=== PATIENT | male | born 1935 | race Caucasian/White ===

== ENCOUNTER 2017-11-22 20:41 | Inpatient (IN) | payer MEDICARE, BC, OTHER ==
[~2017-11-22] VITALS: Ht 193 cm; Wt 96.2 kg
[~2017-11-22 20:41] MED LIST: ACET-2119 PO; ASPI-416 PO; ATEN25TA7 PO; ATOR10TA70 PO; DOXA8TAB79 PO; LIDOcaine 2% (20 mg/ml) 5ml cardiac syringe ONE; LOPE1TAB46 PO; MAGNESIUM SULFATE 4 MEQ/ML (5gm/10ml) injection ONE; albumin (human) 25% 100 ML IV solution IV ONE; aminocaproic acid 250 MG/1 ML inj. ONE; amiodarone in dextrose, iso-osm 360mg/200ml bag IV ONE; calcium chloride 100 MG/1 ML inj IV ONE; heparin 1,000 units/ml 10ml inj ONE; heparin 10,000 units/1 ML INJ ONE; phenylephrine 10mg/ml inj. ONE; potassium Cl 2 mEq/ml inj IV ONE; protamine sulf. 10mg/ml inj. IV ONE; sevoflurane 250ml liquid IH ONE; sodium bicarbonate (8.4%) 1 mEq/ml syringe ONE
[2017-11-22] MEDS ORDERED: temazepam 15mg capsule PO PRN (21:00)
[2017-11-22 21:18] LABS: HEMATOCRIT 35.7 % (42.0-52.0); HEMOGLOBIN 12.1 g/dl (14.0-17.9); MEAN CORPUSCULAR HEMOGLOBIN 29.8 PG (27.0-31.0); MEAN CORPUSCULAR HGB CONC 33.9 % (33.0-36.5); MEAN CORPUSCULAR VOLUME 87.8 FL (78-98); MEAN PLATELET VOLUME 9.9 FL (7.4-10.4); PLATELET COUNT 115 X10'3 (140-440); RED BLOOD COUNT 4.07 X10'6 (4.70-6.10); RED CELL DISTRIBUTION WIDTH 13.3 % (11.5-14.5); WHITE BLOOD COUNT 4.4 X10'3 (4.5-11.0)
[2017-11-22 21:25] LABS: ALANINE AMINOTRANSFERASE 22 U/L (12-78); ALBUMIN 3.9 G/DL (3.4-5.0); ALBUMIN/GLOBULIN RATIO 1.1 (1.1-1.5); ALKALINE PHOSPHATASE 56 IU/L (46-116); ANION GAP 7 (8-16); ASPARTATE AMINO TRANSFERASE 20 U/L (10-37); BILIRUBIN,TOTAL 0.4 MG/DL (0.1-1.0); BLOOD UREA NITROGEN 22 MG/DL (7-18); BUN/CREATININE RATIO 23.4 (5.4-32.0); CALCIUM 8.6 MG/DL (8.5-10.1); CHLORIDE 103 MMOL/L (99-107); CREATININE 0.94 MG/DL (0.60-1.10); GLUCOSE 133 MG/DL (70-104); POTASSIUM 3.7 MMOL/L (3.5-5.1); SODIUM 139 MMOL/L (135-145); TOTAL CARBON DIOXIDE 28.7 MMOL/L (24-32); TOTAL PROTEIN 7.4 G/DL (6.4-8.2); eGFR 77 ML/MIN
[2017-11-22 21:38] LABS: PARTIAL THROMBOPLASTIN TIME 28 SECONDS (22-32); PROTHROMBIN TIME 10.7 SECONDS (9.0-12.0)
[2017-11-22 21:53] LABS: TOTAL CELLS COUNTED 100
[2017-11-22 21:54] LABS: GIANT PLATELET FEW; LARGE PLATELETS FEW; PLATELET ESTIMATE DECREASED
[2017-11-22] MEDS ORDERED: magnesium hydroxide 30ml (MOM) UD suspension PO PRN (22:30)
[2017-11-22] MEDS ORDERED: HYDROcodone/acetaminophen 5mg/325mg tablet PO PRN (22:30)
[2017-11-22] MEDS ORDERED: ondansetron/PF 4mg/2ml inj IV PRN (22:30)
[2017-11-22] MEDS ORDERED: diphenhydrAMINE 25mg capsule PO PRN (22:30)
[2017-11-22] MEDS ORDERED: HYDROmorphone 1 mg/ml syringe IV PRN ×2 (22:30)
[2017-11-22] MEDS ORDERED: morphine 2 MG/ML inj. syringe IV PRN ×2 (22:30)
[2017-11-22] MEDS ORDERED: bisacodyl 10mg suppository rectal RC PRN (22:30)
[2017-11-22] MEDS ORDERED: HYDROcodone/acetaminophen 10/325mg tab PO PRN (22:30)
[2017-11-22] MEDS ORDERED: mag hydrox/Alum hydrox/simeth 30ml oral suspension PO PRN (22:30)
[2017-11-22] MEDS ORDERED: diphenhydrAMINE 50 mg/ml inj IV PRN (22:30)
[2017-11-22] MEDS ORDERED: acetaminophen 650mg rectal suppository RC PRN (22:30)
[2017-11-22] MEDS ORDERED: acetaminophen 325mg tablet PO PRN ×2 (22:30)
[2017-11-22] MEDS ORDERED: metoclopramide 5 mg/ml inj IV PRN (22:30)
[2017-11-22] MEDS ORDERED: ISOS120T9 PO (22:32)
[2017-11-22] MEDS ORDERED: NITR0.4T SL (22:32)
[2017-11-22] MEDS ORDERED: ALFU10TA PO (22:32)
[2017-11-22] MEDS ORDERED: nitroGLYCERIN 0.4mg SUBLingual tab SL PRN (22:45)
[2017-11-22] MEDS ORDERED: regadenoson 0.4mg/5ml syringe IV ONE (22:45)
[2017-11-22] MEDS ORDERED: metoprolol tartrate 1mg/ml inj IV PRN (22:45)
[2017-11-22] MEDS ORDERED: aminophylline 250mg/10ml inj. IV PRN (22:45)
[2017-11-22 23:00] VITALS: BP 162/95
[2017-11-22 23:03] LABS: PHOSPHORUS 2.9 MG/DL (2.3-4.5)
[2017-11-23] VITALS (13 sets, daily range): BP systolic 115–161; BP diastolic 61–86
[2017-11-23] MEDS: normal saline 1000ml 1,000 ML IV SCH ×3 (00:30→19:30)
[2017-11-23 02:57] LABS: BASOPHILS % (AUTO) 0.4 % (0-1); EOSINOPHILS # (AUTO) 0.2 X10'3 (0-0.9); EOSINOPHILS % (AUTO) 3.8 % (0-6); HEMATOCRIT 37.9 % (42.0-52.0); HEMOGLOBIN 12.9 g/dl (14.0-17.9); LYMPHOCYTES # (AUTO) 1.1 X10'3 (1.1-4.8); LYMPHOCYTES % (AUTO) 24.2 % (21-51); MEAN CORPUSCULAR HEMOGLOBIN 29.8 PG (27.0-31.0); MEAN CORPUSCULAR VOLUME 87.8 FL (78-98); MEAN PLATELET VOLUME 9.3 FL (7.4-10.4); MONOCYTES # (AUTO) 0.9 X10'3 (0-0.9); MONOCYTES % (AUTO) 18.9 % (2-12); NEUTROPHILS # (AUTO) 2.4 X10'3 (1.8-7.7); NEUTROPHILS % (AUTO) 52.7 % (42-75); PLATELET COUNT 118 X10'3 (140-440); RED BLOOD COUNT 4.32 X10'6 (4.70-6.10); RED CELL DISTRIBUTION WIDTH 13.7 % (11.5-14.5); WHITE BLOOD COUNT 4.5 X10'3 (4.5-11.0)
[2017-11-23 03:11] LABS: ALANINE AMINOTRANSFERASE 20 U/L (12-78); ALBUMIN 3.6 G/DL (3.4-5.0); ALBUMIN/GLOBULIN RATIO 1.1 (1.1-1.5); ALKALINE PHOSPHATASE 49 IU/L (46-116); ANION GAP 9 (8-16); ASPARTATE AMINO TRANSFERASE 19 U/L (10-37); BILIRUBIN,TOTAL 0.4 MG/DL (0.1-1.0); BLOOD UREA NITROGEN 20 MG/DL (7-18); BUN/CREATININE RATIO 21.3 (5.4-32.0); CALCIUM 8.6 MG/DL (8.5-10.1); CHLORIDE 105 MMOL/L (99-107); CREATININE 0.94 MG/DL (0.60-1.10); GLUCOSE 104 MG/DL (70-104); SODIUM 141 MMOL/L (135-145); TOTAL CARBON DIOXIDE 26.9 MMOL/L (24-32); eGFR 77 ML/MIN
[2017-11-23] MEDS: famotidine 20mg tablet PO SCH ×2 (07:18→20:54)
[2017-11-23] MEDS: docusate sod 100mg capsule PO SCH ×2 (07:18→20:00)
[2017-11-23] MEDS: atenolol 25mg tablet PO SCH (07:19)
[2017-11-23] MEDS: heparin, porcine 5000 units/ml vial SQ SCH ×2 (07:19→20:57)
[2017-11-23] MEDS ORDERED: aspirin 81mg tablet.DR PO SCH (08:00)
[2017-11-23] MEDS ORDERED: acetaminophen 325mg tablet PO PRN (10:20)
[2017-11-23] MEDS ORDERED: SIMETHICONE PO PRN (10:50)
[2017-11-23] MEDS ORDERED: LOPERAMIDE HCL PO PRN (10:50)
[2017-11-23] MEDS ORDERED: aminophylline inj. 0 ML IV ONE (12:49)
[2017-11-23] MEDS ORDERED: regadenoson 0.4mg/5ml syringe IV ONE (12:49)
[2017-11-23] MEDS: tamsulosin 0.4mg capsule PO SCH (20:54)
[2017-11-23] MEDS: atorvastatin 10mg tablet PO SCH (20:54)
[2017-11-23] MEDS: doxazosin mesylate 2mg tablet PO SCH (20:55)
[2017-11-24] VITALS (7 sets, daily range): BP systolic 98–135; BP diastolic 44–65
[2017-11-24 05:21] LABS: BASOPHILS % (AUTO) 0.4 % (0-1); EOSINOPHILS # (AUTO) 0.2 X10'3 (0-0.9); EOSINOPHILS % (AUTO) 3.4 % (0-6); HEMATOCRIT 36.3 % (42.0-52.0); HEMOGLOBIN 12.3 g/dl (14.0-17.9); LYMPHOCYTES # (AUTO) 1.4 X10'3 (1.1-4.8); MEAN CORPUSCULAR HEMOGLOBIN 29.9 PG (27.0-31.0); MEAN CORPUSCULAR HGB CONC 33.8 % (33.0-36.5); MEAN CORPUSCULAR VOLUME 88.4 FL (78-98); MEAN PLATELET VOLUME 9.8 FL (7.4-10.4); MONOCYTES % (AUTO) 18.9 % (2-12); NEUTROPHILS # (AUTO) 2.5 X10'3 (1.8-7.7); NEUTROPHILS % (AUTO) 50.3 % (42-75); PLATELET COUNT 108 X10'3 (140-440); RED BLOOD COUNT 4.11 X10'6 (4.70-6.10); RED CELL DISTRIBUTION WIDTH 13.6 % (11.5-14.5)
[2017-11-24 06:14] LABS: ALANINE AMINOTRANSFERASE 21 U/L (12-78); ALBUMIN 3.8 G/DL (3.4-5.0); ALBUMIN/GLOBULIN RATIO 1.2 (1.1-1.5); ALKALINE PHOSPHATASE 50 IU/L (46-116); ANION GAP 7 (8-16); ASPARTATE AMINO TRANSFERASE 21 U/L (10-37); BILIRUBIN,TOTAL 0.9 MG/DL (0.1-1.0); BLOOD UREA NITROGEN 18 MG/DL (7-18); BUN/CREATININE RATIO 17.1 (5.4-32.0); CALCIUM 8.8 MG/DL (8.5-10.1); CHLORIDE 104 MMOL/L (99-107); CREATININE 1.05 MG/DL (0.60-1.10); GLUCOSE 94 MG/DL (70-104); MAGNESIUM 1.9 MG/DL (1.5-2.4); PHOSPHORUS 2.7 MG/DL (2.3-4.5); POTASSIUM 3.5 MMOL/L (3.5-5.1); SODIUM 141 MMOL/L (135-145); TOTAL CARBON DIOXIDE 29.7 MMOL/L (24-32); TOTAL PROTEIN 7.1 G/DL (6.4-8.2); eGFR 68 ML/MIN
[2017-11-24] MEDS: docusate sod 100mg capsule PO SCH ×2 (08:24→20:00)
[2017-11-24] MEDS: atenolol 25mg tablet PO SCH (08:25)
[2017-11-24] MEDS: isosorbide mononitrate 30mg tab.SR.24H PO SCH (08:25)
[2017-11-24] MEDS: famotidine 20mg tablet PO SCH ×2 (08:25→20:27)
[2017-11-24] MEDS: heparin, porcine 5000 units/ml vial SQ SCH ×2 (08:26→20:00)
[2017-11-24 09:51] LABS: CHOL/HDL RATIO 4.3 (0.00-4.99); CHOLESTEROL 158 MG/DL (0-200); HDL CHOLESTEROL 37 MG/DL (35-60); LDL CHOLESTEROL 108 MG/DL (50-100); TRIGLYCERIDES 113 MG/DL (20-135)
[2017-11-24] MEDS ORDERED: aspirin 81mg tablet.DR PO SCH (10:58)
[2017-11-24] MEDS: normal saline 1000ml 1,000 ML IV SCH ×2 (15:54→18:34)
[2017-11-24] MEDS: tamsulosin 0.4mg capsule PO SCH (20:27)
[2017-11-24] MEDS: atorvastatin 10mg tablet PO SCH (20:27)
[2017-11-24] MEDS: doxazosin mesylate 2mg tablet PO SCH (22:10)
[2017-11-25] VITALS (16 sets, daily range): BP systolic 101–126; BP diastolic 48–94
[2017-11-25 05:46] LABS: BASOPHILS % (AUTO) 0.3 % (0-1); EOSINOPHILS # (AUTO) 0.1 X10'3 (0-0.9); EOSINOPHILS % (AUTO) 2.7 % (0-6); HEMATOCRIT 32.8 % (42.0-52.0); HEMOGLOBIN 11.1 g/dl (14.0-17.9); LYMPHOCYTES # (AUTO) 0.8 X10'3 (1.1-4.8); LYMPHOCYTES % (AUTO) 15.8 % (21-51); MEAN CORPUSCULAR HEMOGLOBIN 29.6 PG (27.0-31.0); MEAN CORPUSCULAR HGB CONC 33.7 % (33.0-36.5); MEAN CORPUSCULAR VOLUME 87.8 FL (78-98); MEAN PLATELET VOLUME 9.5 FL (7.4-10.4); MONOCYTES % (AUTO) 19.7 % (2-12); NEUTROPHILS # (AUTO) 3.2 X10'3 (1.8-7.7); NEUTROPHILS % (AUTO) 61.5 % (42-75); PLATELET COUNT 100 X10'3 (140-440); RED BLOOD COUNT 3.73 X10'6 (4.70-6.10); RED CELL DISTRIBUTION WIDTH 13.4 % (11.5-14.5); WHITE BLOOD COUNT 5.2 X10'3 (4.5-11.0)
[2017-11-25] MEDS ORDERED: midazolam 2 mg/2 ml injection ONE (06:00)
[2017-11-25] MEDS ORDERED: iohexol 350MG/ML 100ml bottle IV ONE (06:00)
[2017-11-25] MEDS ORDERED: fentaNYL/PF 50MCG/1 ML 2ML syringe ONE (06:00)
[2017-11-25] MEDS ORDERED: LIDOcaine 1% 30ml preserv. free vial ONE (06:00)
[2017-11-25 06:04] LABS: ALANINE AMINOTRANSFERASE 19 U/L (12-78); ALBUMIN 3.4 G/DL (3.4-5.0); ALBUMIN/GLOBULIN RATIO 1.1 (1.1-1.5); ALKALINE PHOSPHATASE 44 IU/L (46-116); ANION GAP 7 (8-16); ASPARTATE AMINO TRANSFERASE 18 U/L (10-37); BILIRUBIN,TOTAL 0.9 MG/DL (0.1-1.0); BLOOD UREA NITROGEN 16 MG/DL (7-18); BUN/CREATININE RATIO 16.5 (5.4-32.0); CALCIUM 8.6 MG/DL (8.5-10.1); CHLORIDE 107 MMOL/L (99-107); CREATININE 0.97 MG/DL (0.60-1.10); GLUCOSE 92 MG/DL (70-104); MAGNESIUM 1.9 MG/DL (1.5-2.4); PHOSPHORUS 2.7 MG/DL (2.3-4.5); POTASSIUM 3.9 MMOL/L (3.5-5.1); SODIUM 142 MMOL/L (135-145); TOTAL CARBON DIOXIDE 28.2 MMOL/L (24-32); TOTAL PROTEIN 6.4 G/DL (6.4-8.2); eGFR 74 ML/MIN
[2017-11-25] MEDS ORDERED: heparin 1,000unit/ml 10ml vial 0 ML ONE (06:40)
[2017-11-25] MEDS ORDERED: OXAZEpam 15mg capsule PO PRN (07:25)
[2017-11-25] MEDS ORDERED: ondansetron/PF 4mg/2ml inj IV PRN (07:25)
[2017-11-25] MEDS ORDERED: proCHLORperazine 10 MG/2 ml inj IV PRN (07:25)
[2017-11-25] MEDS ORDERED: MESSAGE TO NURSING PO ONE ×5 (07:40→10:00)
[2017-11-25] MEDS ORDERED: dextrose 50%-water 50ml dispensing syringe IV PRN (07:40)
[2017-11-25] MEDS: atenolol 25mg tablet PO SCH (08:00)
[2017-11-25 09:29] LABS: ALBUMIN 3.7 G/DL (3.4-5.0); ANION GAP 7 (8-16); BLOOD UREA NITROGEN 16 MG/DL (7-18); BUN/CREATININE RATIO 16.2 (5.4-32.0); CALCIUM 8.5 MG/DL (8.5-10.1); CHLORIDE 106 MMOL/L (99-107); CREATININE 0.99 MG/DL (0.60-1.10); GLUCOSE 117 MG/DL (70-104); SODIUM 141 MMOL/L (135-145); TOTAL CARBON DIOXIDE 27.7 MMOL/L (24-32); eGFR 73 ML/MIN
[2017-11-25 09:32] LABS: HEMATOCRIT 36.2 % (42.0-52.0); HEMOGLOBIN 12.2 g/dl (14.0-17.9); MEAN CORPUSCULAR HEMOGLOBIN 29.9 PG (27.0-31.0); MEAN CORPUSCULAR HGB CONC 33.8 % (33.0-36.5); MEAN CORPUSCULAR VOLUME 88.3 FL (78-98); MEAN PLATELET VOLUME 9.6 FL (7.4-10.4); PLATELET COUNT 110 X10'3 (140-440); RED BLOOD COUNT 4.09 X10'6 (4.70-6.10); RED CELL DISTRIBUTION WIDTH 13.4 % (11.5-14.5); WHITE BLOOD COUNT 4.4 X10'3 (4.5-11.0)
[2017-11-25 09:33] LABS: INR 1.1 INR; PARTIAL THROMBOPLASTIN TIME 27 SECONDS (22-32); PROTHROMBIN TIME 10.9 SECONDS (9.0-12.0)
[2017-11-25 09:38] LABS: HEMOGLOBIN A1C 6.1 % (4.5-6.2)
[2017-11-25] MEDS: famotidine 20mg tablet PO SCH ×2 (09:47→20:00)
[2017-11-25] MEDS: isosorbide mononitrate 30mg tab.SR.24H PO SCH (09:47)
[2017-11-25] MEDS: docusate sod 100mg capsule PO SCH ×2 (09:48→20:00)
[2017-11-25] MEDS: heparin, porcine 5000 units/ml vial SQ SCH (09:49)
[2017-11-25 11:06] LABS: ABG BASE EXCESS -0.3 mmol/L (-2.0-3.0); ABG HCO3 24.2 mmol/L (22.0-26.0); ABG OXYGEN SATURATION 95.4 % (95-98); ABG PCO2 (T) 39.3 mmHg (35.0-48.0); ABG PH (T) 7.408 (7.350-7.450); ABG PO2 (T) 79.5 mmHg (83-108); ALLEN'S TEST Positive; FCOHb 0.5 % (0.5-1.5); FMetHb 0.1 % (0.3-1.12); FO2Hb 94.8 % (94-100); TOTAL HEMOGLOBIN 12.1 G/dl (14.0-18.0)
[2017-11-25] MEDS ORDERED: amiodarone 150mg/dext, iso-os 100 ML IV ONE (16:25)
[2017-11-25] MEDS: amiodarone/D5 360MG/200ML BAG 200 ML IV SCH ×2 (17:00→22:26)
[2017-11-25 17:11] LABS: COLOR,URINE YELLOW (Yellow); GLUCOSE, URINE NEGATIVE (Neg); KETONES,URINE NEGATIVE (Neg); LEUKOCYTE ESTERASE ,URINE TRACE (Neg); NITRITES, URINE NEGATIVE (Neg); OCCULT BLOOD,URINE NEGATIVE (Neg); PH,URINE 6.5 (4.8-8.0); PROTEIN,URINE NEGATIVE (Neg); UROBILINOGEN,URINE 0.2 E.U/dL (0.2-1.0)
[2017-11-25 17:12] LABS: UA COLLECTION TYPE URINAL
[2017-11-25 17:20] LABS: BACTERIA,URINE FEW /HPF (Neg); MUCUS STRANDS FEW /LPF (Neg); RBC,URINE 0-2 /HPF (0-2); SQUAMOUS EPITHELIAL CELL,UR FEW /LPF (FEW); WBC CLUMPS,URINE FEW /HPF (NEGATIVE); WBC,URINE 20-30 /HPF (0-4)
[2017-11-25 17:22] LABS: CLARITY,URINE Slightly Cloudy (Clear)
[2017-11-25] MEDS ORDERED: mupirocin 2% nasal ointment 1gm UD NS SCH (20:00)
[2017-11-25] MEDS: doxazosin mesylate 2mg tablet PO SCH (21:01)
[2017-11-25] MEDS: tamsulosin 0.4mg capsule PO SCH (21:02)
[2017-11-25] MEDS: atorvastatin 10mg tablet PO SCH (21:02)
[2017-11-26] VITALS (19 sets, daily range): BP systolic 88–157; BP diastolic 44–76
[2017-11-26] MEDS ORDERED: famotidine 20mg tablet PO ONE (06:00)
[2017-11-26] MEDS ORDERED: LORazepam 2 mg/ml vial IV ONE (06:00)
[2017-11-26 06:06] LABS: BASOPHILS % (AUTO) 0.3 % (0-1); EOSINOPHILS # (AUTO) 0.1 X10'3 (0-0.9); EOSINOPHILS % (AUTO) 2.4 % (0-6); HEMATOCRIT 35.9 % (42.0-52.0); HEMOGLOBIN 12.3 g/dl (14.0-17.9); LYMPHOCYTES # (AUTO) 0.8 X10'3 (1.1-4.8); LYMPHOCYTES % (AUTO) 16.4 % (21-51); MEAN CORPUSCULAR HEMOGLOBIN 29.9 PG (27.0-31.0); MEAN CORPUSCULAR HGB CONC 34.2 % (33.0-36.5); MEAN CORPUSCULAR VOLUME 87.4 FL (78-98); MEAN PLATELET VOLUME 9.7 FL (7.4-10.4); MONOCYTES # (AUTO) 0.9 X10'3 (0-0.9); MONOCYTES % (AUTO) 18.9 % (2-12); NEUTROPHILS # (AUTO) 3.1 X10'3 (1.8-7.7); PLATELET COUNT 109 X10'3 (140-440); RED CELL DISTRIBUTION WIDTH 13.2 % (11.5-14.5)
[2017-11-26] MEDS ORDERED: ceFAZolin 2gm in dextrose, iso 100 ML IV ONE (06:30)
[2017-11-26] MEDS ORDERED: vancomycin/NS 1 GM ADD-VANTAGE 250 ML IV ONE (06:30)
[2017-11-26 06:33] LABS: ALANINE AMINOTRANSFERASE 17 U/L (12-78); ALBUMIN 3.5 G/DL (3.4-5.0); ALKALINE PHOSPHATASE 50 IU/L (46-116); ANION GAP 11 (8-16); ASPARTATE AMINO TRANSFERASE 20 U/L (10-37); BILIRUBIN,TOTAL 0.7 MG/DL (0.1-1.0); BLOOD UREA NITROGEN 17 MG/DL (7-18); CALCIUM 8.6 MG/DL (8.5-10.1); CHLORIDE 106 MMOL/L (99-107); CHOLESTEROL 145 MG/DL (0-200); GLUCOSE 102 MG/DL (70-104); HDL CHOLESTEROL 36 MG/DL (35-60); LDL CHOLESTEROL 93 MG/DL (50-100); MAGNESIUM 1.9 MG/DL (1.5-2.4); PHOSPHORUS 2.4 MG/DL (2.3-4.5); POTASSIUM 3.6 MMOL/L (3.5-5.1); SODIUM 141 MMOL/L (135-145); TOTAL CARBON DIOXIDE 24.5 MMOL/L (24-32); TOTAL PROTEIN 6.9 G/DL (6.4-8.2); TRIGLYCERIDES 117 MG/DL (20-135); eGFR 72 ML/MIN
[2017-11-26] MEDS ORDERED: MIDAZolam 1mg/ml 10ml vial ONE (06:42)
[2017-11-26] MEDS ORDERED: SUFENTANIL CITRATE 50 MCG/ML 2ml ampule IV ONE (06:42)
[2017-11-26 06:54] LABS: INR 1.1 INR; PROTHROMBIN TIME 10.9 SECONDS (9.0-12.0)
[2017-11-26 07:36] LABS: ABG HCO3 23.7 mmol/L (22.0-26.0); ABG OXYGEN SATURATION 99.3 % (95-98); ABG PCO2 (T) 39.2 mmHg (35.0-48.0); ABG PH (T) 7.399 (7.350-7.450); FCOHb 0.3 % (0.5-1.5); FMetHb 0.6 % (0.3-1.12); FO2Hb 98.4 % (94-100); TOTAL HEMOGLOBIN 11.7 G/dl (14.0-18.0)
[2017-11-26] MEDS ORDERED: papaverine 30 mg/ml 2ml inj. IA ONE (08:03)
[2017-11-26] MEDS ORDERED: heparin 10,000 units/1 ML INJ IR ONE (08:04)
[2017-11-26 10:26] LABS: ABG BASE EXCESS -0.6 mmol/L (-2.0-3.0); ABG HCO3 24.9 mmol/L (22.0-26.0); ABG OXYGEN SATURATION 91.6 % (95-98); ABG PO2 (T) 66.3 mmHg (83-108); FCOHb 0.9 % (0.5-1.5); FMetHb 0.5 % (0.3-1.12); FO2Hb 90.3 % (94-100); TOTAL HEMOGLOBIN 8.1 G/dl (14.0-18.0)
[2017-11-26] MEDS: amiodarone/D5 360MG/200ML BAG 200 ML IV SCH ×3 (10:34→16:38)
[2017-11-26] MEDS ORDERED: DOPamine 400mg/D5W 250ml 250 ML IV PRN (10:54)
[2017-11-26] MEDS ORDERED: niCARDipine-NS 40mg/200ml IVPB 200 ML IV PRN (10:54)
[2017-11-26] MEDS ORDERED: nitroGLYCERIN-Tridil 50MG/D5W 250 ML IV PRN (10:54)
[2017-11-26] MEDS ORDERED: normal saline 250ml IV soln 250 ML IV PRN (10:55)
[2017-11-26] MEDS ORDERED: sodium phosphate inj. 30 MMOL in dextrose 5%-water 250 ML IV PRN (10:55)
[2017-11-26] MEDS ORDERED: acetaminophen 325mg tablet PO PRN (10:55)
[2017-11-26] MEDS ORDERED: metoclopramide 5 mg/ml inj IV PRN (10:55)
[2017-11-26] MEDS ORDERED: magnesium hydroxide 30ml (MOM) UD suspension PO PRN (10:55)
[2017-11-26] MEDS ORDERED: ondansetron/PF 4mg/2ml inj IV PRN (10:55)
[2017-11-26] MEDS ORDERED: Neutra Phos packet PO PRN (10:55)
[2017-11-26] MEDS ORDERED: dextrose 50%-water 50ml dispensing syringe IV PRN (10:55)
[2017-11-26] MEDS ORDERED: sodium phosphate inj. 15 MMOL in dextrose 5%-water 150 ML IV PRN (10:55)
[2017-11-26] MEDS ORDERED: insulin regular, human inj. 100 UNITS in normal saline 100ml IV soln 100 ML IV SCH ×2 (10:55)
[2017-11-26] MEDS ORDERED: potassium Cl 20mEq/100mL bag 100 ML IV PRN ×2 (10:55)
[2017-11-26] MEDS ORDERED: magnesium 4gm in 100ml NS 100 ML IV PRN (10:55)
[2017-11-26 11:10] LABS: ABG BASE EXCESS -3.4 mmol/L (-2.0-3.0); ABG HCO3 21.3 mmol/L (22.0-26.0); ABG OXYGEN SATURATION 98.8 % (95-98); ABG PCO2 (T) 36.4 mmHg (35.0-48.0); ABG PH (T) 7.384 (7.350-7.450); ABG PO2 (T) 209.1 mmHg (83-108); FCOHb 0.3 % (0.5-1.5); FMetHb 0.3 % (0.3-1.12); FO2Hb 98.2 % (94-100); MINUTE VOLUME 8 L/min; PATIENT TEMPERATURE 36.6; PEEP 5 cm H2O; RESPIRATORY RATE 12 b/min; TIDAL VOLUME 600 mL; TOTAL HEMOGLOBIN 11.9 G/dl (14.0-18.0)
[2017-11-26 11:12] LABS: BASOPHILS % (AUTO) 0 % (0-1); EOSINOPHILS % (AUTO) 0.4 % (0-6); HEMATOCRIT 33.3 % (42.0-52.0); HEMOGLOBIN 11.2 g/dl (14.0-17.9); LYMPHOCYTES # (AUTO) 0.6 X10'3 (1.1-4.8); LYMPHOCYTES % (AUTO) 7.9 % (21-51); MEAN CORPUSCULAR HEMOGLOBIN 29.6 PG (27.0-31.0); MEAN CORPUSCULAR HGB CONC 33.6 % (33.0-36.5); MEAN CORPUSCULAR VOLUME 88.1 FL (78-98); MONOCYTES # (AUTO) 0.9 X10'3 (0-0.9); MONOCYTES % (AUTO) 11.2 % (2-12); NEUTROPHILS # (AUTO) 6.4 X10'3 (1.8-7.7); NEUTROPHILS % (AUTO) 80.5 % (42-75); PLATELET COUNT 65 X10'3 (140-440); RED BLOOD COUNT 3.78 X10'6 (4.70-6.10); RED CELL DISTRIBUTION WIDTH 13.1 % (11.5-14.5); WHITE BLOOD COUNT 7.9 X10'3 (4.5-11.0)
[2017-11-26] MEDS ORDERED: rocuronium 10mg/ml inj IV ONE ×3 (11:26)
[2017-11-26] MEDS ORDERED: propofol inj 20 ML IV ONE (11:26)
[2017-11-26] MEDS ORDERED: ePHEDrine 50MG/ML INJ. ONE (11:26)
[2017-11-26 11:28] LABS: ALANINE AMINOTRANSFERASE 17 U/L (12-78); ALBUMIN 2.8 G/DL (3.4-5.0); ALBUMIN/GLOBULIN RATIO 1.2 (1.1-1.5); ALKALINE PHOSPHATASE 37 IU/L (46-116); ANION GAP 9 (8-16); ASPARTATE AMINO TRANSFERASE 23 U/L (10-37); BILIRUBIN,TOTAL 0.8 MG/DL (0.1-1.0); BLOOD UREA NITROGEN 14 MG/DL (7-18); BUN/CREATININE RATIO 14.7 (5.4-32.0); CHLORIDE 109 MMOL/L (99-107); CREATININE 0.95 MG/DL (0.60-1.10); GLUCOSE 150 MG/DL (70-104); MAGNESIUM 2.5 MG/DL (1.5-2.4); PHOSPHORUS 2.4 MG/DL (2.3-4.5); POTASSIUM 4.1 MMOL/L (3.5-5.1); SODIUM 143 MMOL/L (135-145); TOTAL CARBON DIOXIDE 25.2 MMOL/L (24-32); TOTAL PROTEIN 5.2 G/DL (6.4-8.2); eGFR 76 ML/MIN
[2017-11-26 11:29] LABS: INR 1.2 INR; PARTIAL THROMBOPLASTIN TIME 26 SECONDS (22-32); PROTHROMBIN TIME 12.5 SECONDS (9.0-12.0)
[2017-11-26] MEDS: albumin (Human) 5% 250ml 250 ML IV PRN ×3 (12:00→14:28)
[2017-11-26] MEDS ORDERED: insulin Lispro (HumaLOG) vial - multi-dose SQ SCH (12:00)
[2017-11-26] MEDS: insulin regular, human inj. 100 UNITS in normal saline 100ml IV soln 100 ML IV SCH ×8 (12:02→15:05)
[2017-11-26] MEDS: sodium chloride 0.45% 1,000 ML IV SCH (12:06)
[2017-11-26] MEDS: insulin Lispro (HumaLOG) vial - multi-dose SQ SCH ×2 (12:08→16:39)
[2017-11-26] MEDS: morphine 4 MG/ML inj SYRINge IV PRN ×5 (13:00→20:12)
[2017-11-26] MEDS ORDERED: dexmedetomidine inj. 400 MCG in normal saline 100ml IV soln 100 ML IV PRN (14:10)
[2017-11-26 16:15] LABS: ABG BASE EXCESS -5.5 mmol/L (-2.0-3.0); ABG PCO2 (T) 34.4 mmHg (35.0-48.0); ABG PH (T) 7.362 (7.350-7.450); FCOHb 0.3 % (0.5-1.5); FMetHb 0.2 % (0.3-1.12); FO2Hb 97.5 % (94-100); PATIENT TEMPERATURE 37.6; PEEP 5 cm H2O; TOTAL HEMOGLOBIN 10.8 G/dl (14.0-18.0)
[2017-11-26] MEDS: ceFAZolin 1GM/D5W- ADD-VANTAGE 50 ML IV SCH ×2 (16:38→23:52)
[2017-11-26 17:30] LABS: BASOPHILS % (AUTO) 0 % (0-1); EOSINOPHILS % (AUTO) 0 % (0-6); HEMATOCRIT 29.2 % (42.0-52.0); HEMOGLOBIN 9.8 g/dl (14.0-17.9); LYMPHOCYTES # (AUTO) 0.2 X10'3 (1.1-4.8); LYMPHOCYTES % (AUTO) 1.8 % (21-51); MEAN CORPUSCULAR HEMOGLOBIN 29.7 PG (27.0-31.0); MEAN CORPUSCULAR HGB CONC 33.7 % (33.0-36.5); MEAN CORPUSCULAR VOLUME 88.2 FL (78-98); MEAN PLATELET VOLUME 9.6 FL (7.4-10.4); MONOCYTES # (AUTO) 1.2 X10'3 (0-0.9); MONOCYTES % (AUTO) 11.4 % (2-12); NEUTROPHILS # (AUTO) 9.4 X10'3 (1.8-7.7); NEUTROPHILS % (AUTO) 86.8 % (42-75); PLATELET COUNT 67 X10'3 (140-440); RED BLOOD COUNT 3.31 X10'6 (4.70-6.10); RED CELL DISTRIBUTION WIDTH 13.5 % (11.5-14.5); WHITE BLOOD COUNT 10.8 X10'3 (4.5-11.0)
[2017-11-26 17:39] LABS: ALBUMIN 3.5 G/DL (3.4-5.0); ANION GAP 12 (8-16); BLOOD UREA NITROGEN 14 MG/DL (7-18); BUN/CREATININE RATIO 10.9 (5.4-32.0); CALCIUM 8.3 MG/DL (8.5-10.1); CHLORIDE 110 MMOL/L (99-107); CREATININE 1.28 MG/DL (0.60-1.10); GLUCOSE 149 MG/DL (70-104); POTASSIUM 3.7 MMOL/L (3.5-5.1); SODIUM 146 MMOL/L (135-145); TOTAL CARBON DIOXIDE 23.7 MMOL/L (24-32); eGFR 54 ML/MIN
[2017-11-26] MEDS: potassium Cl 20mEq/100mL bag 100 ML IV PRN ×2 (19:05→20:12)
[2017-11-26] MEDS: docusate sod 100mg capsule PO SCH (20:00)
[2017-11-26] MEDS: vancomycin/NS 1 GM ADD-VANTAGE 250 ML IV SCH (20:11)
[2017-11-26] MEDS: tamsulosin 0.4mg capsule PO SCH (20:19)
[2017-11-26] MEDS: mupirocin 2% ointment 22GM NS SCH (20:19)
[2017-11-27] VITALS (24 sets, daily range): BP systolic 81–153; BP diastolic 41–65
[2017-11-27] MEDS: morphine 4 MG/ML inj SYRINge IV PRN ×3 (00:06→22:35)
[2017-11-27 01:51] LABS: BASOPHILS % (AUTO) 0 % (0-1); EOSINOPHILS % (AUTO) 0 % (0-6); HEMATOCRIT 25.6 % (42.0-52.0); HEMOGLOBIN 8.6 g/dl (14.0-17.9); LYMPHOCYTES # (AUTO) 0.2 X10'3 (1.1-4.8); LYMPHOCYTES % (AUTO) 1.7 % (21-51); MEAN CORPUSCULAR HEMOGLOBIN 29.7 PG (27.0-31.0); MEAN CORPUSCULAR HGB CONC 33.6 % (33.0-36.5); MEAN CORPUSCULAR VOLUME 88.4 FL (78-98); MEAN PLATELET VOLUME 10.1 FL (7.4-10.4); MONOCYTES # (AUTO) 1.3 X10'3 (0-0.9); MONOCYTES % (AUTO) 11.8 % (2-12); NEUTROPHILS # (AUTO) 9.4 X10'3 (1.8-7.7); NEUTROPHILS % (AUTO) 86.5 % (42-75); PLATELET COUNT 62 X10'3 (140-440); RED CELL DISTRIBUTION WIDTH 13.8 % (11.5-14.5); WHITE BLOOD COUNT 10.8 X10'3 (4.5-11.0)
[2017-11-27 02:11] LABS: INR 1.2 INR; PARTIAL THROMBOPLASTIN TIME 29 SECONDS (22-32); PROTHROMBIN TIME 12.3 SECONDS (9.0-12.0)
[2017-11-27 02:57] LABS: ALANINE AMINOTRANSFERASE 18 U/L (12-78); ALBUMIN 3.1 G/DL (3.4-5.0); ALBUMIN/GLOBULIN RATIO 1.3 (1.1-1.5); ALKALINE PHOSPHATASE 26 IU/L (46-116); ANION GAP 11 (8-16); ASPARTATE AMINO TRANSFERASE 39 U/L (10-37); BILIRUBIN,TOTAL 0.8 MG/DL (0.1-1.0); BLOOD UREA NITROGEN 16 MG/DL (7-18); CALCIUM 8.1 MG/DL (8.5-10.1); CHLORIDE 111 MMOL/L (99-107); CREATININE 0.94 MG/DL (0.60-1.10); GLUCOSE 135 MG/DL (70-104); MAGNESIUM 1.9 MG/DL (1.5-2.4); POTASSIUM 4.6 MMOL/L (3.5-5.1); SODIUM 146 MMOL/L (135-145); TOTAL CARBON DIOXIDE 24.5 MMOL/L (24-32); TOTAL PROTEIN 5.5 G/DL (6.4-8.2); eGFR 77 ML/MIN
[2017-11-27] MEDS: amiodarone/D5 360MG/200ML BAG 200 ML IV SCH ×5 (04:46→22:20)
[2017-11-27] MEDS: ceFAZolin 1GM/D5W- ADD-VANTAGE 50 ML IV SCH ×3 (07:20→22:40)
[2017-11-27] MEDS: metoprolol tartrate 12.5mg (1/2 tablet) PO SCH ×2 (07:26→20:00)
[2017-11-27] MEDS: mupirocin 2% ointment 22GM NS SCH ×2 (07:28→20:54)
[2017-11-27] MEDS: vancomycin/NS 1 GM ADD-VANTAGE 250 ML IV SCH ×2 (07:29→20:54)
[2017-11-27] MEDS: pantoprazole 40mg Tablet.DR PO SCH (07:30)
[2017-11-27] MEDS: atorvastatin 10mg tablet PO SCH (07:53)
[2017-11-27] MEDS: docusate sod 100mg capsule PO SCH ×2 (07:53→20:54)
[2017-11-27] MEDS: aspirin 325mg tablet, delayed-release (Ecotrin) PO SCH (07:53)
[2017-11-27] MEDS: insulin Lispro (HumaLOG) vial - multi-dose SQ SCH ×3 (09:00→19:13)
[2017-11-27 09:30] LABS: ABG BASE EXCESS -0.4 mmol/L (-2.0-3.0); ABG HCO3 22.9 mmol/L (22.0-26.0); ABG OXYGEN SATURATION 95.4 % (95-98); ABG PCO2 (T) 32.2 mmHg (35.0-48.0); ABG PH (T) 7.469 (7.350-7.450); ABG PO2 (T) 76.1 mmHg (83-108); FCOHb 0.3 % (0.5-1.5); FLOW 2 L/min; FMetHb 0.1 % (0.3-1.12); TOTAL HEMOGLOBIN 9.7 G/dl (14.0-18.0)
[2017-11-27] MEDS ORDERED: furosemide 40mg/4ml inj IV ONE (09:45)
[2017-11-27] MEDS: HYDROcodone/acetaminophen 10/325mg tab PO PRN (15:58)
[2017-11-27] MEDS: tamsulosin 0.4mg capsule PO SCH (20:54)
[2017-11-28] VITALS (24 sets, daily range): BP systolic 93–119; BP diastolic 57–73
[2017-11-28] MEDS: morphine 4 MG/ML inj SYRINge IV PRN ×2 (01:55→12:05)
[2017-11-28 03:03] LABS: BASOPHILS % (AUTO) 0 % (0-1); EOSINOPHILS % (AUTO) 0 % (0-6); HEMATOCRIT 26.8 % (42.0-52.0); LYMPHOCYTES # (AUTO) 0.5 X10'3 (1.1-4.8); LYMPHOCYTES % (AUTO) 5.2 % (21-51); MEAN CORPUSCULAR HEMOGLOBIN 29.6 PG (27.0-31.0); MEAN CORPUSCULAR HGB CONC 33.5 % (33.0-36.5); MEAN CORPUSCULAR VOLUME 88.2 FL (78-98); MEAN PLATELET VOLUME 10.1 FL (7.4-10.4); MONOCYTES # (AUTO) 1.3 X10'3 (0-0.9); MONOCYTES % (AUTO) 14.1 % (2-12); NEUTROPHILS # (AUTO) 7.4 X10'3 (1.8-7.7); NEUTROPHILS % (AUTO) 80.7 % (42-75); PLATELET COUNT 60 X10'3 (140-440); RED BLOOD COUNT 3.04 X10'6 (4.70-6.10); RED CELL DISTRIBUTION WIDTH 14.4 % (11.5-14.5); WHITE BLOOD COUNT 9.2 X10'3 (4.5-11.0)
[2017-11-28 03:06] LABS: ALBUMIN 3.1 G/DL (3.4-5.0); ANION GAP 8 (8-16); BLOOD UREA NITROGEN 24 MG/DL (7-18); BUN/CREATININE RATIO 22.4 (5.4-32.0); CHLORIDE 107 MMOL/L (99-107); CREATININE 1.07 MG/DL (0.60-1.10); GLUCOSE 135 MG/DL (70-104); MAGNESIUM 2.6 MG/DL (1.5-2.4); PHOSPHORUS 2.5 MG/DL (2.3-4.5); POTASSIUM 3.7 MMOL/L (3.5-5.1); SODIUM 141 MMOL/L (135-145); TOTAL CARBON DIOXIDE 26.5 MMOL/L (24-32); eGFR 66 ML/MIN
[2017-11-28] MEDS: potassium Cl 20mEq/100mL bag 100 ML IV PRN (03:54)
[2017-11-28] MEDS: amiodarone/D5 360MG/200ML BAG 200 ML IV SCH ×4 (05:02→19:35)
[2017-11-28] MEDS: insulin regular, human inj. 100 UNITS in normal saline 100ml IV soln 100 ML IV SCH ×2 (06:30)
[2017-11-28] MEDS: mupirocin 2% ointment 22GM NS SCH (08:00)
[2017-11-28] MEDS: pantoprazole 40mg Tablet.DR PO SCH (08:37)
[2017-11-28] MEDS: metoprolol tartrate 12.5mg (1/2 tablet) PO SCH ×2 (08:37→19:50)
[2017-11-28] MEDS: amiodarone 200mg tablet PO SCH (08:37)
[2017-11-28] MEDS: docusate sod 100mg capsule PO SCH ×2 (08:37→19:50)
[2017-11-28] MEDS: aspirin 325mg tablet, delayed-release (Ecotrin) PO SCH (08:37)
[2017-11-28] MEDS: atorvastatin 10mg tablet PO SCH (08:37)
[2017-11-28] MEDS: insulin Lispro (HumaLOG) vial - multi-dose SQ SCH ×3 (09:00→18:00)
[2017-11-28] MEDS: sodium chloride 0.45% 1,000 ML IV SCH ×2 (10:54→19:35)
[2017-11-28] MEDS: lactose-reduced food (Ensure High Protein) 237ml bottle PO SCH (18:00)
[2017-11-28] MEDS: HYDROcodone/acetaminophen 10/325mg tab PO PRN (18:46)
[2017-11-28] MEDS: tamsulosin 0.4mg capsule PO SCH (21:12)
[2017-11-29] VITALS (23 sets, daily range): BP systolic 96–124; BP diastolic 58–76
[2017-11-29] MEDS: HYDROcodone/acetaminophen 10/325mg tab PO PRN ×4 (02:43→16:18)
[2017-11-29 03:13] LABS: BASOPHILS % (AUTO) 0.1 % (0-1); EOSINOPHILS # (AUTO) 0.1 X10'3 (0-0.9); EOSINOPHILS % (AUTO) 1.2 % (0-6); HEMATOCRIT 25.8 % (42.0-52.0); HEMOGLOBIN 8.8 g/dl (14.0-17.9); LYMPHOCYTES # (AUTO) 0.6 X10'3 (1.1-4.8); LYMPHOCYTES % (AUTO) 8.7 % (21-51); MEAN CORPUSCULAR HGB CONC 34.1 % (33.0-36.5); MEAN PLATELET VOLUME 10.6 FL (7.4-10.4); MONOCYTES % (AUTO) 13.5 % (2-12); NEUTROPHILS # (AUTO) 5.6 X10'3 (1.8-7.7); NEUTROPHILS % (AUTO) 76.5 % (42-75); PLATELET COUNT 60 X10'3 (140-440); RED BLOOD COUNT 2.93 X10'6 (4.70-6.10); RED CELL DISTRIBUTION WIDTH 13.9 % (11.5-14.5); WHITE BLOOD COUNT 7.3 X10'3 (4.5-11.0)
[2017-11-29 03:32] LABS: ALBUMIN 2.9 G/DL (3.4-5.0); ANION GAP 7 (8-16); BLOOD UREA NITROGEN 26 MG/DL (7-18); BUN/CREATININE RATIO 29.5 (5.4-32.0); CALCIUM 7.9 MG/DL (8.5-10.1); CHLORIDE 105 MMOL/L (99-107); CREATININE 0.88 MG/DL (0.60-1.10); GLUCOSE 128 MG/DL (70-104); MAGNESIUM 2.1 MG/DL (1.5-2.4); PHOSPHORUS 1.9 MG/DL (2.3-4.5); POTASSIUM 3.7 MMOL/L (3.5-5.1); SODIUM 139 MMOL/L (135-145); TOTAL CARBON DIOXIDE 27.4 MMOL/L (24-32); eGFR 83 ML/MIN
[2017-11-29] MEDS: magnesium 1gm/100ml D5W IVPB 100 ML IV PRN (04:38)
[2017-11-29] MEDS: potassium Cl 20mEq/100mL bag 100 ML IV PRN (04:39)
[2017-11-29] MEDS: amiodarone/D5 360MG/200ML BAG 200 ML IV SCH (05:18)
[2017-11-29] MEDS: insulin regular, human inj. 100 UNITS in normal saline 100ml IV soln 100 ML IV SCH ×2 (06:30)
[2017-11-29] MEDS: apixaban 5mg tablet PO SCH ×2 (07:35→19:47)
[2017-11-29] MEDS: docusate sod 100mg capsule PO SCH ×2 (07:35→19:47)
[2017-11-29] MEDS: aspirin 81mg tablet.DR PO SCH (07:35)
[2017-11-29] MEDS: amiodarone 200mg tablet PO SCH ×3 (07:35→19:47)
[2017-11-29] MEDS: atorvastatin 10mg tablet PO SCH (07:36)
[2017-11-29] MEDS: pantoprazole 40mg Tablet.DR PO SCH (07:36)
[2017-11-29] MEDS: metoprolol tartrate 12.5mg (1/2 tablet) PO SCH ×2 (07:36→19:47)
[2017-11-29] MEDS: lactose-reduced food (Ensure High Protein) 237ml bottle PO SCH (08:00)
[2017-11-29] MEDS: insulin Lispro (HumaLOG) vial - multi-dose SQ SCH ×3 (09:00→16:57)
[2017-11-29 10:05] LABS: ACT @ 1.70 U 310 SEC (193-297); ACT @ 2.84 U 448 SEC (260-420); BASELINE ACT 149 SEC (101-148); PATIENT WEIGHT 90.0k KG
[2017-11-29 12:46] LABS: ABG HCO3 22.6 mmol/L (22.0-26.0); ABG OXYGEN SATURATION 99.2 % (95-98); ABG PCO2 37.7 mmHg (35.0-45.0); ABG PH 7.396 (7.350-7.450); CL (ABG) 105 mmol/L (99-107); FCOHb 0.7 % (0.5-1.5); FMetHb 0.4 % (0.3-1.12); FO2Hb 98.1 % (94-100); GLUCOSE (ABG) 119 mg/dl (70-105); IONIZED CA (ABG) 0.99 mmol/L (1.03-1.32); K (ABG) 5.8 mmol/L (3.3-5.1); NA (ABG) 125 mmol/L (135-145); TOTAL HEMOGLOBIN 8.9 G/dl (14.0-18.0)
[2017-11-29 13:08] LABS: ABG BASE EXCESS 2.1 mmol/L (-2.0-3.0); ABG OXYGEN SATURATION 98.9 % (95-98); ABG PCO2 (T) 43.6 mmHg (35.0-48.0); ABG PO2 (T) 366.4 mmHg (83-108); FCOHb 0.3 % (0.5-1.5); FMetHb 0.5 % (0.3-1.12); FO2Hb 98.1 % (94-100); TOTAL HEMOGLOBIN 8.5 G/dl (14.0-18.0)
[2017-11-29] MEDS: morphine 4 MG/ML inj SYRINge IV PRN (19:48)
[2017-11-29] MEDS: tamsulosin 0.4mg capsule PO SCH (20:10)
[2017-11-30] VITALS (22 sets, daily range): BP systolic 87–144; BP diastolic 53–109
[2017-11-30 03:33] LABS: ALBUMIN 2.9 G/DL (3.4-5.0); ANION GAP 9 (8-16); BLOOD UREA NITROGEN 23 MG/DL (7-18); BUN/CREATININE RATIO 24.7 (5.4-32.0); CALCIUM 8.1 MG/DL (8.5-10.1); CHLORIDE 105 MMOL/L (99-107); CREATININE 0.93 MG/DL (0.60-1.10); GLUCOSE 118 MG/DL (70-104); MAGNESIUM 2.2 MG/DL (1.5-2.4); POTASSIUM 3.7 MMOL/L (3.5-5.1); SODIUM 140 MMOL/L (135-145); TOTAL CARBON DIOXIDE 26.3 MMOL/L (24-32); eGFR 78 ML/MIN
[2017-11-30 03:52] LABS: BASOPHILS % (AUTO) 0.2 % (0-1); EOSINOPHILS # (AUTO) 0.1 X10'3 (0-0.9); EOSINOPHILS % (AUTO) 1.6 % (0-6); HEMATOCRIT 24.1 % (42.0-52.0); HEMOGLOBIN 8.1 g/dl (14.0-17.9); LYMPHOCYTES # (AUTO) 0.6 X10'3 (1.1-4.8); LYMPHOCYTES % (AUTO) 9.4 % (21-51); MEAN CORPUSCULAR HGB CONC 33.9 % (33.0-36.5); MEAN CORPUSCULAR VOLUME 88.4 FL (78-98); MONOCYTES % (AUTO) 16.8 % (2-12); NEUTROPHILS # (AUTO) 4.3 X10'3 (1.8-7.7); PLATELET COUNT 78 X10'3 (140-440); RED BLOOD COUNT 2.72 X10'6 (4.70-6.10); RED CELL DISTRIBUTION WIDTH 13.6 % (11.5-14.5); WHITE BLOOD COUNT 5.9 X10'3 (4.5-11.0)
[2017-11-30] MEDS: magnesium 1gm/100ml D5W IVPB 100 ML IV PRN (04:08)
[2017-11-30] MEDS: potassium Cl 20mEq/100mL bag 100 ML IV PRN (04:08)
[2017-11-30 04:31] LABS: LARGE PLATELETS FEW; PLATELET ESTIMATE DECREASED
[2017-11-30] MEDS: insulin regular, human inj. 100 UNITS in normal saline 100ml IV soln 100 ML IV SCH ×2 (06:30)
[2017-11-30] MEDS: atorvastatin 10mg tablet PO SCH (07:44)
[2017-11-30] MEDS: HYDROcodone/acetaminophen 10/325mg tab PO PRN ×2 (07:44→20:28)
[2017-11-30] MEDS: aspirin 81mg tablet.DR PO SCH (07:45)
[2017-11-30] MEDS: docusate sod 100mg capsule PO SCH ×2 (07:45→20:27)
[2017-11-30] MEDS: apixaban 5mg tablet PO SCH ×2 (07:45→20:27)
[2017-11-30] MEDS: amiodarone 200mg tablet PO SCH ×2 (07:45→20:27)
[2017-11-30] MEDS: pantoprazole 40mg Tablet.DR PO SCH (07:45)
[2017-11-30] MEDS: metoprolol tartrate 12.5mg (1/2 tablet) PO SCH (07:45)
[2017-11-30] MEDS ORDERED: atenolol 25mg tablet PO ONE (08:20)
[2017-11-30] MEDS: insulin Lispro (HumaLOG) vial - multi-dose SQ SCH ×3 (08:27→18:00)
[2017-11-30] MEDS ORDERED: alfuzosin 10MG TAB.SR.24H PO SCH (08:30)
[2017-11-30] MEDS: sodium chloride 0.45% 1,000 ML IV SCH (10:54)
[2017-11-30] MEDS ORDERED: metoprolol tartrate 12.5mg (1/2 tablet) PO SCH (20:00)
[2017-11-30] MEDS: tamsulosin 0.4mg capsule PO SCH (20:27)
[2017-11-30] MEDS ORDERED: doxazosin mesylate 2mg tablet PO SCH (21:00)
[2017-12-01] VITALS (14 sets, daily range): BP systolic 92–119; BP diastolic 54–76
[2017-12-01 04:36] LABS: HEMATOCRIT 24.3 % (42.0-52.0); HEMOGLOBIN 8.2 g/dl (14.0-17.9); MEAN CORPUSCULAR HEMOGLOBIN 29.7 PG (27.0-31.0); MEAN CORPUSCULAR HGB CONC 33.7 % (33.0-36.5); MEAN CORPUSCULAR VOLUME 88.1 FL (78-98); MEAN PLATELET VOLUME 10.6 FL (7.4-10.4); PLATELET COUNT 106 X10'3 (140-440); RED BLOOD COUNT 2.76 X10'6 (4.70-6.10); RED CELL DISTRIBUTION WIDTH 13.6 % (11.5-14.5); WHITE BLOOD COUNT 5.9 X10'3 (4.5-11.0)
[2017-12-01 04:44] LABS: ANION GAP 10 (8-16); BLOOD UREA NITROGEN 25 MG/DL (7-18); CALCIUM 7.9 MG/DL (8.5-10.1); CHLORIDE 104 MMOL/L (99-107); CREATININE 0.96 MG/DL (0.60-1.10); GLUCOSE 116 MG/DL (70-104); MAGNESIUM 2.2 MG/DL (1.5-2.4); SODIUM 139 MMOL/L (135-145); TOTAL CARBON DIOXIDE 25.5 MMOL/L (24-32); eGFR 75 ML/MIN
[2017-12-01 04:59] LABS: TOTAL CELLS COUNTED 100
[2017-12-01 05:01] LABS: LARGE PLATELETS FEW; PLATELET ESTIMATE DECREASED
[2017-12-01] MEDS ORDERED: magnesium citrate 296ml oral solution PO ONE (07:10)
[2017-12-01] MEDS ORDERED: atenolol 25mg tablet PO SCH (08:00)
[2017-12-01] MEDS: lactose-reduced food (Ensure High Protein) 237ml bottle PO SCH ×2 (08:00→12:58)
[2017-12-01] MEDS: amiodarone 200mg tablet PO SCH (08:26)
[2017-12-01] MEDS: atorvastatin 10mg tablet PO SCH (08:26)
[2017-12-01] MEDS: apixaban 5mg tablet PO SCH (08:26)
[2017-12-01] MEDS: aspirin 81mg tablet.DR PO SCH (08:26)
[2017-12-01] MEDS: pantoprazole 40mg Tablet.DR PO SCH (08:26)
[2017-12-01] MEDS: docusate sod 100mg capsule PO SCH (08:27)
[2017-12-01] MEDS: insulin Lispro (HumaLOG) vial - multi-dose SQ SCH ×2 (09:00→12:57)
== END 2017-12-01 13:15 | disposition home or self-care (01) | DRG 233 ==
LOC: ER 20:41 → ED HOLD 22:27 → PCU 3S 23:12 → CICU 2S 11-26 07:20
PROVIDERS: ADMIT Family Medicine; ATTEND Thoracic Surgery (Cardiothoracic Vascular Surgery)
PROC: 4A02XM4 Measurement of Cardiac Total Activity, External Approach (ICD-10-PCS; principal; 2017-11-23)
PROC: 3E033HZ Introduction of Radioactive Substance into Peripheral Vein, Percutaneous Approach (ICD-10-PCS; 2017-11-23)
PROC: 4A023N7 Measurement of Cardiac Sampling and Pressure, Left Heart, Percutaneous Approach (ICD-10-PCS; 2017-11-25)
PROC: B2111ZZ Fluoroscopy of Multiple Coronary Arteries using Low Osmolar Contrast (ICD-10-PCS; 2017-11-25)
PROC: B2151ZZ Fluoroscopy of Left Heart using Low Osmolar Contrast (ICD-10-PCS; 2017-11-25)
PROC: 02100Z9 Bypass Coronary Artery, One Artery from Left Internal Mammary, Open Approach (ICD-10-PCS; 2017-11-26)
PROC: 021209W Bypass Coronary Artery, Three Arteries from Aorta with Autologous Venous Tissue, Open Approach (ICD-10-PCS; 2017-11-26)
PROC: 06BQ4ZZ Excision of Left Saphenous Vein, Percutaneous Endoscopic Approach (ICD-10-PCS; 2017-11-26)
PROC: 05HM33Z Insertion of Infusion Device into Right Internal Jugular Vein, Percutaneous Approach (ICD-10-PCS; 2017-11-26)
PROC: 5A1221Z Performance of Cardiac Output, Continuous (ICD-10-PCS; 2017-11-26)
PROC: B24BZZ4 Ultrasonography of Heart with Aorta, Transesophageal (ICD-10-PCS; 2017-11-26)
DX: I25.110 Atherosclerotic heart disease of native coronary artery with unstable angina pectoris (principal); N17.0 Acute kidney failure with tubular necrosis; J44.9 Chronic obstructive pulmonary disease, unspecified; D69.6 Thrombocytopenia, unspecified; E78.00 Pure hypercholesterolemia, unspecified; E78.5 Hyperlipidemia, unspecified; I11.0 Hypertensive heart disease with heart failure; F02.80 Dementia in other diseases classified elsewhere, unspecified severity, without behavioral disturbance, psychotic disturbance, mood disturbance, and anxiety; I50.9 Heart failure, unspecified; G30.9 Alzheimer's disease, unspecified; I48.0 Paroxysmal atrial fibrillation; M19.90 Unspecified osteoarthritis, unspecified site; N40.0 Benign prostatic hyperplasia without lower urinary tract symptoms; Z79.899 Other long term (current) drug therapy; Z79.82 Long term (current) use of aspirin; Z79.01 Long term (current) use of anticoagulants; Z87.891 Personal history of nicotine dependence
CPT/HCPCS: 0232T; 93312; 93325; 93458; 99285; 36415; 36600; 70450; 71045; 71046; 78452; 80048; 80053; 80061; 81001; 82330; 82435; 82800; 82803; 82947; 82948; 83036; 83735; 83880; 84100; 84132; 84295; 84443; 84484; 85018; 85025; 85027; 85347; 85384; 85610; 85730; 86885; 86900; 86901; 86920; 87070; 87088; 93005; 93017; 93880; 93970; 94002; 94010; 94760; 97110; 97116; 97162; 97530; 97535; 99152; A4620; A6255; A6257; A6258; A6402; A6446; A6449; A7000; A7048; A7526; A9500; C1751; C1769; J0280; J0282; J0690; J1644; J1815; J1940; J2001; J2060; J2150; J2250; J2270; J2370; J2440; J2704; J2720; J3010; J3370; J3475; J3480; J3490; J7030; J7120; P9045; P9047; Q9967

== ENCOUNTER 2017-12-05 06:55 | Inpatient (IN) | payer MEDICARE, BC, OTHER ==
[~2017-12-05] VITALS: Ht 177.8 cm; Wt 85.7 kg
[~2017-12-05 06:55] MED LIST changes: +ALFU10TA PO; +ISOS120T9 PO; -LIDOcaine 2% (20 mg/ml) 5ml cardiac syringe ONE; -MAGNESIUM SULFATE 4 MEQ/ML (5gm/10ml) injection ONE; +NITR0.4T SL; -albumin (human) 25% 100 ML IV solution IV ONE; -aminocaproic acid 250 MG/1 ML inj. ONE; -amiodarone in dextrose, iso-osm 360mg/200ml bag IV ONE; -calcium chloride 100 MG/1 ML inj IV ONE; -heparin 1,000 units/ml 10ml inj ONE; -heparin 10,000 units/1 ML INJ ONE; -phenylephrine 10mg/ml inj. ONE; -potassium Cl 2 mEq/ml inj IV ONE; -protamine sulf. 10mg/ml inj. IV ONE; -sevoflurane 250ml liquid IH ONE; -sodium bicarbonate (8.4%) 1 mEq/ml syringe ONE
[2017-12-05] MEDS ORDERED: furosemide 10 MG/1 ML 10ml inj IV ONE (08:00)
[2017-12-05 08:11] LABS: BASOPHILS % (AUTO) 0.4 % (0-1); EOSINOPHILS # (AUTO) 0.1 X10'3 (0-0.9); EOSINOPHILS % (AUTO) 0.9 % (0-6); HEMATOCRIT 24.4 % (42.0-52.0); LYMPHOCYTES # (AUTO) 0.5 X10'3 (1.1-4.8); LYMPHOCYTES % (AUTO) 4.8 % (21-51); MEAN CORPUSCULAR HEMOGLOBIN 29.7 PG (27.0-31.0); MEAN CORPUSCULAR HGB CONC 32.9 % (33.0-36.5); MEAN CORPUSCULAR VOLUME 90.3 FL (78-98); MEAN PLATELET VOLUME 9.6 FL (7.4-10.4); MONOCYTES # (AUTO) 1.7 X10'3 (0-0.9); NEUTROPHILS # (AUTO) 8.3 X10'3 (1.8-7.7); NEUTROPHILS % (AUTO) 77.9 % (42-75); PLATELET COUNT 211 X10'3 (140-440); RED CELL DISTRIBUTION WIDTH 14.4 % (11.5-14.5); WHITE BLOOD COUNT 10.7 X10'3 (4.5-11.0)
[2017-12-05 08:11] LABS: ABG OXYGEN SATURATION 91.1 % (95-98); ABG PCO2 (T) 27.8 mmHg (35.0-48.0); ABG PH (T) 7.475 (7.350-7.450); ABG PO2 (T) 61.8 mmHg (83-108); FCOHb 0.1 % (0.5-1.5); FLOW 2 L/min; FMetHb 0.2 % (0.3-1.12); FO2Hb 90.8 % (94-100); TOTAL HEMOGLOBIN 8.1 G/dl (14.0-18.0)
[2017-12-05 08:28] LABS: ALANINE AMINOTRANSFERASE 33 U/L (12-78); ALBUMIN 3.2 G/DL (3.4-5.0); ALBUMIN/GLOBULIN RATIO 0.9 (1.1-1.5); ALKALINE PHOSPHATASE 53 IU/L (46-116); ANION GAP 11 (8-16); ASPARTATE AMINO TRANSFERASE 19 U/L (10-37); BILIRUBIN,TOTAL 0.9 MG/DL (0.1-1.0); BLOOD UREA NITROGEN 17 MG/DL (7-18); BUN/CREATININE RATIO 17.7 (5.4-32.0); CALCIUM 8.5 MG/DL (8.5-10.1); CHLORIDE 99 MMOL/L (99-107); CREATININE 0.96 MG/DL (0.60-1.10); GLUCOSE 123 MG/DL (70-104); POTASSIUM 4.2 MMOL/L (3.5-5.1); SODIUM 134 MMOL/L (135-145); TOTAL CARBON DIOXIDE 23.7 MMOL/L (24-32); TOTAL PROTEIN 6.8 G/DL (6.4-8.2); eGFR 75 ML/MIN
[2017-12-05 08:30] LABS: CLARITY,URINE CLEAR (Clear); COLOR,URINE YELLOW (Yellow); GLUCOSE, URINE NEGATIVE (Neg); KETONES,URINE NEGATIVE (Neg); LEUKOCYTE ESTERASE ,URINE NEGATIVE (Neg); NITRITES, URINE NEGATIVE (Neg); OCCULT BLOOD,URINE LARGE (Neg); PROTEIN,URINE NEGATIVE (Neg); UROBILINOGEN,URINE 0.2 E.U/dL (0.2-1.0)
[2017-12-05 08:31] LABS: UA COLLECTION TYPE STRAIGHT CATH
[2017-12-05 08:35] LABS: MAGNESIUM 1.9 MG/DL (1.5-2.4)
[2017-12-05 08:45] LABS: MUCUS STRANDS MODERATE /LPF (Neg); SQUAMOUS EPITHELIAL CELL,UR FEW /LPF (FEW)
[2017-12-05] MEDS ORDERED: diltiazem 5mg/ml 5ml inj. IV ONE (08:50)
[2017-12-05 08:52] LABS: WBC,URINE 0-4 /HPF (0-4)
[2017-12-05 08:53] LABS: BACTERIA,URINE NONE SEEN /HPF (Neg); RBC,URINE 20-50 /HPF (0-2)
[2017-12-05 08:56] LABS: INR 1.2 INR; PARTIAL THROMBOPLASTIN TIME 31 SECONDS (22-32); PROTHROMBIN TIME 12.4 SECONDS (9.0-12.0)
[2017-12-05] MEDS ORDERED: mag hydrox/Alum hydrox/simeth 30ml oral suspension PO PRN (09:45)
[2017-12-05] MEDS ORDERED: ondansetron/PF 4mg/2ml inj IV PRN (09:45)
[2017-12-05] MEDS ORDERED: potassium Cl 40MEQ/NS 500ml 500 ML IV PRN ×2 (09:45)
[2017-12-05] MEDS ORDERED: magnesium Cl slow-release 64mg tablet PO PRN (09:45)
[2017-12-05] MEDS ORDERED: potassium Cl 20 mEq SR tablet PO PRN (09:45)
[2017-12-05] MEDS ORDERED: acetaminophen 325mg tablet PO PRN ×2 (09:45)
[2017-12-05] MEDS ORDERED: magnesium hydroxide 30ml (MOM) UD suspension PO PRN (09:45)
[2017-12-05] MEDS ORDERED: magnesium 4gm in 100ml NS 100 ML IV PRN (09:45)
[2017-12-05] MEDS ORDERED: metoprolol tartrate 50mg tablet PO ONE (10:15)
[2017-12-05] MEDS ORDERED: APIX5TAB3 PO (10:33)
[2017-12-05] MEDS ORDERED: ISOS30TA9 PO (10:33)
[2017-12-05] MEDS ORDERED: AMIO200T40 PO (10:33)
[2017-12-05] MEDS ORDERED: QUET25TA PO (10:33)
[2017-12-05] MEDS ORDERED: SENN1TAB6 PO (10:33)
[2017-12-05] MEDS ORDERED: ATEN-169 PO (10:33)
[2017-12-05 11:00] VITALS: BP 145/77
[2017-12-05 15:00] VITALS: BP 111/71
[2017-12-05] MEDS: furosemide 40mg/4ml inj IV SCH (16:32)
[2017-12-05 19:00] VITALS: BP 157/92
[2017-12-05] MEDS: sennosides/docusate sodium tablet PO SCH (19:53)
[2017-12-05] MEDS: amiodarone 200mg tablet PO SCH (19:53)
[2017-12-05] MEDS: apixaban 5mg tablet PO SCH (19:53)
[2017-12-05] MEDS: QUEtiapine 25mg tablet PO PRN (19:53)
[2017-12-05] MEDS: atorvastatin 10mg tablet PO SCH (20:03)
[2017-12-05] MEDS: doxazosin mesylate 2mg tablet PO SCH (20:03)
[2017-12-05] MEDS ORDERED: DOXAZOSIN MESYLATE PO SCH (21:00)
[2017-12-05] MEDS ORDERED: tamsulosin 0.4mg capsule PO SCH (21:00)
[2017-12-05 23:00] VITALS: BP 124/68
[2017-12-06] MEDS: furosemide 40mg/4ml inj IV SCH ×3 (00:12→21:07)
[2017-12-06 03:00] VITALS: BP 116/47
[2017-12-06 05:36] LABS: HEMATOCRIT 24.6 % (42.0-52.0); HEMOGLOBIN 8.2 g/dl (14.0-17.9); MEAN CORPUSCULAR HEMOGLOBIN 29.6 PG (27.0-31.0); MEAN CORPUSCULAR HGB CONC 33.3 % (33.0-36.5); PLATELET COUNT 216 X10'3 (140-440); RED BLOOD COUNT 2.77 X10'6 (4.70-6.10); RED CELL DISTRIBUTION WIDTH 14.5 % (11.5-14.5); WHITE BLOOD COUNT 10.7 X10'3 (4.5-11.0)
[2017-12-06 05:49] LABS: ALBUMIN 2.9 G/DL (3.4-5.0); ANION GAP 8 (8-16); BLOOD UREA NITROGEN 20 MG/DL (7-18); BUN/CREATININE RATIO 18.3 (5.4-32.0); CALCIUM 8.2 MG/DL (8.5-10.1); CHLORIDE 99 MMOL/L (99-107); CREATININE 1.09 MG/DL (0.60-1.10); GLUCOSE 121 MG/DL (70-104); MAGNESIUM 1.8 MG/DL (1.5-2.4); POTASSIUM 3.3 MMOL/L (3.5-5.1); SODIUM 135 MMOL/L (135-145); TOTAL CARBON DIOXIDE 28.2 MMOL/L (24-32); eGFR 65 ML/MIN
[2017-12-06 05:55] LABS: PLATELET ESTIMATE NORMAL; TOTAL CELLS COUNTED 100
[2017-12-06 06:30] VITALS: BP 115/50
[2017-12-06] MEDS: isosorbide dinitrate 30mg tablet PO SCH (07:20)
[2017-12-06] MEDS: amiodarone 200mg tablet PO SCH ×2 (07:20→21:07)
[2017-12-06] MEDS: aspirin 81mg tablet.DR PO SCH (07:20)
[2017-12-06] MEDS: metoprolol tartrate 50mg tablet PO SCH ×2 (07:21→21:06)
[2017-12-06] MEDS: apixaban 5mg tablet PO SCH ×2 (07:21→21:06)
[2017-12-06] MEDS: sennosides/docusate sodium tablet PO SCH ×2 (07:21→21:06)
[2017-12-06] MEDS: potassium Cl 20 mEq SR tablet PO PRN ×3 (07:22→21:07)
[2017-12-06] MEDS ORDERED: alfuzosin 10MG TAB.SR.24H PO SCH (08:00)
[2017-12-06] MEDS ORDERED: ASPIRIN PO SCH (08:00)
[2017-12-06 11:47] VITALS: BP 110/60
[2017-12-06] MEDS: HYDROcodone/acetaminophen 5mg/325mg tablet PO PRN ×2 (13:54→23:05)
[2017-12-06 16:09] VITALS: BP 110/63
[2017-12-06] MEDS: lactose-reduced food (Ensure High Protein) 237ml bottle PO SCH (18:00)
[2017-12-06 19:00] VITALS: BP 109/62
[2017-12-06] MEDS ORDERED: tamsulosin 0.4mg capsule PO SCH (21:00)
[2017-12-06] MEDS: atorvastatin 10mg tablet PO SCH (21:06)
[2017-12-06] MEDS: doxazosin mesylate 2mg tablet PO SCH (21:07)
[2017-12-06 23:00] VITALS: BP 113/65
[2017-12-07] VITALS (13 sets, daily range): BP systolic 82–136; BP diastolic 41–102
[2017-12-07 05:33] LABS: BASOPHILS % (AUTO) 0 % (0-1); EOSINOPHILS # (AUTO) 0.2 X10'3 (0-0.9); EOSINOPHILS % (AUTO) 1.9 % (0-6); HEMATOCRIT 23.9 % (42.0-52.0); LYMPHOCYTES # (AUTO) 0.8 X10'3 (1.1-4.8); LYMPHOCYTES % (AUTO) 6.5 % (21-51); MEAN CORPUSCULAR HEMOGLOBIN 29.6 PG (27.0-31.0); MEAN CORPUSCULAR HGB CONC 33.4 % (33.0-36.5); MEAN CORPUSCULAR VOLUME 88.6 FL (78-98); MEAN PLATELET VOLUME 9.2 FL (7.4-10.4); MONOCYTES # (AUTO) 2.4 X10'3 (0-0.9); MONOCYTES % (AUTO) 19.8 % (2-12); NEUTROPHILS # (AUTO) 8.6 X10'3 (1.8-7.7); NEUTROPHILS % (AUTO) 71.8 % (42-75); PLATELET COUNT 220 X10'3 (140-440); RED CELL DISTRIBUTION WIDTH 14.6 % (11.5-14.5); WHITE BLOOD COUNT 11.9 X10'3 (4.5-11.0)
[2017-12-07 05:48] LABS: ALBUMIN 2.8 G/DL (3.4-5.0); ANION GAP 10 (8-16); BLOOD UREA NITROGEN 31 MG/DL (7-18); BUN/CREATININE RATIO 25.4 (5.4-32.0); CALCIUM 8.1 MG/DL (8.5-10.1); CHLORIDE 100 MMOL/L (99-107); CREATININE 1.22 MG/DL (0.60-1.10); GLUCOSE 119 MG/DL (70-104); MAGNESIUM 1.8 MG/DL (1.5-2.4); POTASSIUM 3.4 MMOL/L (3.5-5.1); SODIUM 138 MMOL/L (135-145); TOTAL CARBON DIOXIDE 28.2 MMOL/L (24-32); eGFR 57 ML/MIN
[2017-12-07 06:19] LABS: PLATELET ESTIMATE NORMAL; TOTAL CELLS COUNTED 100
[2017-12-07] MEDS: lactose-reduced food (Ensure High Protein) 237ml bottle PO SCH ×3 (08:00→18:29)
[2017-12-07] MEDS: furosemide 40mg/4ml inj IV SCH (09:21)
[2017-12-07] MEDS: isosorbide dinitrate 30mg tablet PO SCH (09:22)
[2017-12-07] MEDS: aspirin 81mg tablet.DR PO SCH (09:22)
[2017-12-07] MEDS: metoprolol tartrate 50mg tablet PO SCH ×2 (09:22→19:53)
[2017-12-07] MEDS: amiodarone 200mg tablet PO SCH ×2 (09:24→19:54)
[2017-12-07] MEDS: sennosides/docusate sodium tablet PO SCH ×2 (09:25→19:54)
[2017-12-07] MEDS: apixaban 5mg tablet PO SCH ×2 (09:26→19:54)
[2017-12-07] MEDS: HYDROcodone/acetaminophen 5mg/325mg tablet PO PRN ×2 (09:26→21:51)
[2017-12-07] MEDS: potassium Cl 20 mEq SR tablet PO PRN ×2 (13:19→20:03)
[2017-12-07] MEDS: QUEtiapine 25mg tablet PO PRN (19:53)
[2017-12-07] MEDS: atorvastatin 10mg tablet PO SCH (20:03)
[2017-12-07] MEDS ORDERED: doxazosin mesylate 2mg tablet PO SCH (21:00)
[2017-12-08] VITALS (7 sets, daily range): BP systolic 98–127; BP diastolic 58–77
[2017-12-08 06:02] LABS: BASOPHILS % (AUTO) 0 % (0-1); EOSINOPHILS # (AUTO) 0.2 X10'3 (0-0.9); EOSINOPHILS % (AUTO) 1.5 % (0-6); HEMATOCRIT 26.4 % (42.0-52.0); HEMOGLOBIN 8.7 g/dl (14.0-17.9); LYMPHOCYTES # (AUTO) 0.4 X10'3 (1.1-4.8); LYMPHOCYTES % (AUTO) 3.5 % (21-51); MEAN CORPUSCULAR HEMOGLOBIN 29.3 PG (27.0-31.0); MEAN CORPUSCULAR HGB CONC 32.8 % (33.0-36.5); MEAN CORPUSCULAR VOLUME 89.3 FL (78-98); MEAN PLATELET VOLUME 8.7 FL (7.4-10.4); MONOCYTES # (AUTO) 2.5 X10'3 (0-0.9); MONOCYTES % (AUTO) 19.1 % (2-12); NEUTROPHILS # (AUTO) 9.8 X10'3 (1.8-7.7); NEUTROPHILS % (AUTO) 75.9 % (42-75); PLATELET COUNT 261 X10'3 (140-440); RED BLOOD COUNT 2.96 X10'6 (4.70-6.10); RED CELL DISTRIBUTION WIDTH 14.6 % (11.5-14.5)
[2017-12-08 06:25] LABS: ALBUMIN 2.9 G/DL (3.4-5.0); ANION GAP 11 (8-16); BLOOD UREA NITROGEN 30 MG/DL (7-18); CALCIUM 8.7 MG/DL (8.5-10.1); CHLORIDE 101 MMOL/L (99-107); CREATININE 1.11 MG/DL (0.60-1.10); GLUCOSE 143 MG/DL (70-104); POTASSIUM 3.8 MMOL/L (3.5-5.1); SODIUM 139 MMOL/L (135-145); TOTAL CARBON DIOXIDE 27.4 MMOL/L (24-32); eGFR 64 ML/MIN
[2017-12-08 06:39] LABS: TOTAL CELLS COUNTED 100
[2017-12-08 06:40] LABS: PLATELET ESTIMATE NORMAL
[2017-12-08] MEDS: metoprolol tartrate 50mg tablet PO SCH ×3 (08:00→19:22)
[2017-12-08] MEDS: amiodarone 200mg tablet PO SCH ×2 (08:14→19:21)
[2017-12-08] MEDS: aspirin 81mg tablet.DR PO SCH (08:14)
[2017-12-08] MEDS: apixaban 5mg tablet PO SCH ×2 (08:14→19:21)
[2017-12-08] MEDS: sennosides/docusate sodium tablet PO SCH ×2 (08:14→19:21)
[2017-12-08] MEDS: lactose-reduced food (Ensure High Protein) 237ml bottle PO SCH ×3 (08:15→18:00)
[2017-12-08 13:46] LABS: BASOPHILS % (AUTO) 0.2 % (0-1); EOSINOPHILS # (AUTO) 0.2 X10'3 (0-0.9); EOSINOPHILS % (AUTO) 1.2 % (0-6); HEMATOCRIT 27.1 % (42.0-52.0); LYMPHOCYTES # (AUTO) 0.6 X10'3 (1.1-4.8); LYMPHOCYTES % (AUTO) 4.1 % (21-51); MEAN CORPUSCULAR HEMOGLOBIN 29.6 PG (27.0-31.0); MEAN CORPUSCULAR HGB CONC 33.2 % (33.0-36.5); MEAN CORPUSCULAR VOLUME 89.1 FL (78-98); MEAN PLATELET VOLUME 8.6 FL (7.4-10.4); MONOCYTES # (AUTO) 2.8 X10'3 (0-0.9); MONOCYTES % (AUTO) 19.1 % (2-12); NEUTROPHILS # (AUTO) 10.9 X10'3 (1.8-7.7); NEUTROPHILS % (AUTO) 75.4 % (42-75); PLATELET COUNT 269 X10'3 (140-440); RED BLOOD COUNT 3.04 X10'6 (4.70-6.10); RED CELL DISTRIBUTION WIDTH 14.8 % (11.5-14.5); WHITE BLOOD COUNT 14.5 X10'3 (4.5-11.0)
[2017-12-08 14:23] LABS: PLATELET ESTIMATE NORMAL; TOTAL CELLS COUNTED 100
[2017-12-08] MEDS ORDERED: vancomycin inj 1,250 MG in normal saline 250ml IV soln 250 ML IV SCH (18:00)
[2017-12-08] MEDS: piperacillin/tazo 3.375gm/50ml 50 ML IV SCH (19:20)
[2017-12-08] MEDS: QUEtiapine 25mg tablet PO PRN (19:28)
[2017-12-08] MEDS: levoFLOXACIN-Levaquin 250mg/D5 50 ML IV SCH (19:29)
[2017-12-08] MEDS: atorvastatin 10mg tablet PO SCH (21:00)
[2017-12-09] VITALS (8 sets, daily range): BP systolic 97–126; BP diastolic 58–71
[2017-12-09] MEDS: HYDROcodone/acetaminophen 5mg/325mg tablet PO PRN (00:13)
[2017-12-09] MEDS: piperacillin/tazo 3.375gm/50ml 50 ML IV SCH ×4 (02:40→23:48)
[2017-12-09 06:25] LABS: ALBUMIN 2.6 G/DL (3.4-5.0); ANION GAP 11 (8-16); BLOOD UREA NITROGEN 33 MG/DL (7-18); CALCIUM 8.4 MG/DL (8.5-10.1); CHLORIDE 103 MMOL/L (99-107); GLUCOSE 137 MG/DL (70-104); MAGNESIUM 2.1 MG/DL (1.5-2.4); POTASSIUM 3.7 MMOL/L (3.5-5.1); SODIUM 140 MMOL/L (135-145); TOTAL CARBON DIOXIDE 26.3 MMOL/L (24-32); eGFR 64 ML/MIN
[2017-12-09 06:34] LABS: BASOPHILS % (AUTO) 0 % (0-1); EOSINOPHILS # (AUTO) 0.2 X10'3 (0-0.9); EOSINOPHILS % (AUTO) 1.3 % (0-6); HEMATOCRIT 25.1 % (42.0-52.0); HEMOGLOBIN 8.3 g/dl (14.0-17.9); LYMPHOCYTES # (AUTO) 0.6 X10'3 (1.1-4.8); LYMPHOCYTES % (AUTO) 4.6 % (21-51); MEAN CORPUSCULAR HEMOGLOBIN 29.5 PG (27.0-31.0); MEAN CORPUSCULAR HGB CONC 33.2 % (33.0-36.5); MEAN CORPUSCULAR VOLUME 88.9 FL (78-98); MEAN PLATELET VOLUME 9.1 FL (7.4-10.4); MONOCYTES # (AUTO) 2.6 X10'3 (0-0.9); MONOCYTES % (AUTO) 19.7 % (2-12); NEUTROPHILS % (AUTO) 74.4 % (42-75); PLATELET COUNT 255 X10'3 (140-440); RED BLOOD COUNT 2.82 X10'6 (4.70-6.10); RED CELL DISTRIBUTION WIDTH 14.9 % (11.5-14.5); WHITE BLOOD COUNT 13.4 X10'3 (4.5-11.0)
[2017-12-09] MEDS: levoFLOXACIN-Levaquin 250mg/D5 50 ML IV SCH (07:36)
[2017-12-09] MEDS: amiodarone 200mg tablet PO SCH ×2 (08:02→19:55)
[2017-12-09] MEDS: apixaban 5mg tablet PO SCH ×2 (08:02→19:56)
[2017-12-09] MEDS: aspirin 81mg tablet.DR PO SCH (08:02)
[2017-12-09] MEDS: sennosides/docusate sodium tablet PO SCH ×2 (08:02→19:56)
[2017-12-09] MEDS: lactose-reduced food (Ensure High Protein) 237ml bottle PO SCH ×3 (08:02→18:45)
[2017-12-09] MEDS: furosemide 20 MG/2 ML vial IV SCH ×2 (10:47→19:55)
[2017-12-09] MEDS: vancomycin inj 1,250 MG in normal saline 250ml IV soln 250 ML IV SCH ×2 (10:48→19:53)
[2017-12-09] MEDS: metoprolol tartrate 50mg tablet PO SCH (19:55)
[2017-12-09] MEDS: lactobacillus rhamnosus 10,000 MMU CELLS/CAPSULE PO SCH (19:56)
[2017-12-09] MEDS: atorvastatin 10mg tablet PO SCH (21:40)
[2017-12-10] VITALS (7 sets, daily range): BP systolic 99–142; BP diastolic 54–115
[2017-12-10] MEDS: levoFLOXACIN-Levaquin 250mg/D5 50 ML IV SCH (06:54)
[2017-12-10] MEDS ORDERED: VANCOMYCIN LEVEL IV ONE (07:30)
[2017-12-10 07:38] LABS: BASOPHILS % (AUTO) 0 % (0-1); EOSINOPHILS # (AUTO) 0.3 X10'3 (0-0.9); EOSINOPHILS % (AUTO) 2.4 % (0-6); HEMATOCRIT 26.8 % (42.0-52.0); HEMOGLOBIN 8.8 g/dl (14.0-17.9); LYMPHOCYTES # (AUTO) 0.5 X10'3 (1.1-4.8); LYMPHOCYTES % (AUTO) 4.9 % (21-51); MEAN CORPUSCULAR HEMOGLOBIN 29.1 PG (27.0-31.0); MEAN CORPUSCULAR HGB CONC 32.8 % (33.0-36.5); MEAN CORPUSCULAR VOLUME 88.8 FL (78-98); MEAN PLATELET VOLUME 8.7 FL (7.4-10.4); MONOCYTES # (AUTO) 1.8 X10'3 (0-0.9); MONOCYTES % (AUTO) 16.7 % (2-12); NEUTROPHILS # (AUTO) 8.4 X10'3 (1.8-7.7); PLATELET COUNT 299 X10'3 (140-440); RED BLOOD COUNT 3.02 X10'6 (4.70-6.10); RED CELL DISTRIBUTION WIDTH 15.2 % (11.5-14.5); WHITE BLOOD COUNT 11.1 X10'3 (4.5-11.0)
[2017-12-10 07:52] LABS: ANISOCYTOSIS 1+; PLATELET ESTIMATE NORMAL
[2017-12-10 07:53] LABS: POIKILOCYTOSIS FEW; POLYCHROMASIA 1+
[2017-12-10 07:54] LABS: ALBUMIN 2.5 G/DL (3.4-5.0); ANION GAP 8 (8-16); BLOOD UREA NITROGEN 35 MG/DL (7-18); CALCIUM 8.5 MG/DL (8.5-10.1); CHLORIDE 104 MMOL/L (99-107); CREATININE 1.03 MG/DL (0.60-1.10); GLUCOSE 135 MG/DL (70-104); POTASSIUM 3.1 MMOL/L (3.5-5.1); SODIUM 141 MMOL/L (135-145); TOTAL CARBON DIOXIDE 29.2 MMOL/L (24-32); VANCOMYCIN,TROUGH 12.5 UG/ML (6.0-14.0); eGFR 69 ML/MIN
[2017-12-10] MEDS: lactose-reduced food (Ensure High Protein) 237ml bottle PO SCH ×3 (08:00→17:53)
[2017-12-10] MEDS: piperacillin/tazo 3.375gm/50ml 50 ML IV SCH ×2 (08:08→17:04)
[2017-12-10] MEDS: sennosides/docusate sodium tablet PO SCH ×2 (09:15→19:55)
[2017-12-10] MEDS: amiodarone 200mg tablet PO SCH ×2 (09:15→19:55)
[2017-12-10] MEDS: aspirin 81mg tablet.DR PO SCH (09:15)
[2017-12-10] MEDS: lactobacillus rhamnosus 10,000 MMU CELLS/CAPSULE PO SCH ×2 (09:15→19:55)
[2017-12-10] MEDS: furosemide 20 MG/2 ML vial IV SCH ×2 (09:16→19:56)
[2017-12-10] MEDS: apixaban 5mg tablet PO SCH ×2 (09:16→19:55)
[2017-12-10] MEDS: vancomycin inj 1,250 MG in normal saline 250ml IV soln 250 ML IV SCH (09:16)
[2017-12-10] MEDS: metoprolol tartrate 50mg tablet PO SCH ×2 (09:16→19:55)
[2017-12-10] MEDS ORDERED: potassium Cl 40MEQ/NS 500ml 500 ML IV PRN ×2 (10:20)
[2017-12-10] MEDS ORDERED: potassium Cl 20 mEq SR tablet PO PRN (10:20)
[2017-12-10] MEDS: potassium Cl 20 mEq SR tablet PO PRN ×2 (10:47→18:00)
[2017-12-10] MEDS: HYDROcodone/acetaminophen 10/325mg tab PO PRN (19:55)
[2017-12-11] MEDS: atorvastatin 10mg tablet PO SCH ×2 (00:17→20:40)
[2017-12-11] MEDS: potassium Cl 20 mEq SR tablet PO PRN (00:42)
[2017-12-11] MEDS: piperacillin/tazo 3.375gm/50ml 50 ML IV SCH ×3 (01:49→15:51)
[2017-12-11] MEDS: QUEtiapine 25mg tablet PO PRN (01:58)
[2017-12-11] MEDS: HYDROcodone/acetaminophen 10/325mg tab PO PRN (01:58)
[2017-12-11 02:00] VITALS: BP 101/59
[2017-12-11 06:00] VITALS: BP 94/70
[2017-12-11] MEDS: metoprolol tartrate 50mg tablet PO SCH ×2 (08:00→20:40)
[2017-12-11] MEDS: furosemide 20 MG/2 ML vial IV SCH ×2 (08:00→20:39)
[2017-12-11] MEDS: lactose-reduced food (Ensure High Protein) 237ml bottle PO SCH ×3 (08:00→18:11)
[2017-12-11] MEDS: amiodarone 200mg tablet PO SCH ×2 (08:58→20:40)
[2017-12-11] MEDS: apixaban 5mg tablet PO SCH ×2 (08:58→20:40)
[2017-12-11] MEDS: aspirin 81mg tablet.DR PO SCH (08:58)
[2017-12-11] MEDS: lactobacillus rhamnosus 10,000 MMU CELLS/CAPSULE PO SCH ×2 (08:58→20:40)
[2017-12-11] MEDS: sennosides/docusate sodium tablet PO SCH ×2 (09:03→20:00)
[2017-12-11 11:00] VITALS: BP 124/75
[2017-12-11] MEDS: levoFLOXACIN-Levaquin 250mg/D5 50 ML IV SCH (12:09)
[2017-12-11 15:00] VITALS: BP 117/60
[2017-12-11 18:00] VITALS: BP 123/74
[2017-12-11] MEDS: HYDROcodone/acetaminophen 5mg/325mg tablet PO PRN (20:43)
[2017-12-11 22:00] VITALS: BP 106/62
[2017-12-12] MEDS: piperacillin/tazo 3.375gm/50ml 50 ML IV SCH ×4 (01:04→23:36)
[2017-12-12 02:00] VITALS: BP 119/85
[2017-12-12] MEDS: QUEtiapine 25mg tablet PO PRN ×2 (02:03→22:07)
[2017-12-12] MEDS: HYDROcodone/acetaminophen 10/325mg tab PO PRN ×2 (02:04→21:03)
[2017-12-12 06:00] VITALS: BP 132/69
[2017-12-12] MEDS: lactose-reduced food (Ensure High Protein) 237ml bottle PO SCH ×3 (08:34→18:04)
[2017-12-12] MEDS: furosemide 20 MG/2 ML vial IV SCH ×2 (08:46→20:51)
[2017-12-12] MEDS: apixaban 5mg tablet PO SCH ×2 (09:06→20:52)
[2017-12-12] MEDS: sennosides/docusate sodium tablet PO SCH ×2 (09:06→20:52)
[2017-12-12] MEDS: aspirin 81mg tablet.DR PO SCH (09:06)
[2017-12-12] MEDS: lactobacillus rhamnosus 10,000 MMU CELLS/CAPSULE PO SCH ×2 (09:06→20:51)
[2017-12-12] MEDS: amiodarone 200mg tablet PO SCH ×2 (09:06→20:52)
[2017-12-12] MEDS: metoprolol tartrate 50mg tablet PO SCH ×2 (09:06→20:51)
[2017-12-12 09:47] LABS: ALBUMIN 2.8 G/DL (3.4-5.0); ANION GAP 8 (8-16); BLOOD UREA NITROGEN 36 MG/DL (7-18); BUN/CREATININE RATIO 34.6 (5.4-32.0); CALCIUM 8.6 MG/DL (8.5-10.1); CHLORIDE 106 MMOL/L (99-107); CREATININE 1.04 MG/DL (0.60-1.10); GLUCOSE 138 MG/DL (70-104); POTASSIUM 3.6 MMOL/L (3.5-5.1); SODIUM 143 MMOL/L (135-145); TOTAL CARBON DIOXIDE 29.2 MMOL/L (24-32); eGFR 69 ML/MIN
[2017-12-12] MEDS: levoFLOXACIN-Levaquin 250mg/D5 50 ML IV SCH (10:10)
[2017-12-12 11:00] VITALS: BP 106/72
[2017-12-12 15:00] VITALS: BP 114/55
[2017-12-12 19:00] VITALS: BP 106/68
[2017-12-12] MEDS ORDERED: VANCOMYCIN LEVEL IV ONE (20:30)
[2017-12-12] MEDS: atorvastatin 10mg tablet PO SCH (20:52)
[2017-12-12] MEDS ORDERED: amiodarone 200mg tablet PO ONE (22:00)
[2017-12-12 23:00] VITALS: BP 92/54
[2017-12-13 03:00] VITALS: BP 108/76
[2017-12-13] MEDS: QUEtiapine 25mg tablet PO PRN (05:59)
[2017-12-13 06:00] VITALS: BP 125/84
[2017-12-13] MEDS: apixaban 5mg tablet PO SCH (07:57)
[2017-12-13] MEDS: levoFLOXACIN-Levaquin 250mg/D5 50 ML IV SCH (07:57)
[2017-12-13] MEDS: aspirin 81mg tablet.DR PO SCH (07:57)
[2017-12-13] MEDS: amiodarone 200mg tablet PO SCH (07:57)
[2017-12-13] MEDS: metoprolol tartrate 50mg tablet PO SCH (07:57)
[2017-12-13] MEDS: lactobacillus rhamnosus 10,000 MMU CELLS/CAPSULE PO SCH (07:57)
[2017-12-13] MEDS: furosemide 20 MG/2 ML vial IV SCH (07:57)
[2017-12-13] MEDS: sennosides/docusate sodium tablet PO SCH (07:57)
[2017-12-13] MEDS: lactose-reduced food (Ensure High Protein) 237ml bottle PO SCH ×2 (07:58→13:18)
[2017-12-13] MEDS ORDERED: vancomycin inj 1,250 MG in normal saline 250ml IV soln 250 ML IV SCH (09:00)
[2017-12-13] MEDS: piperacillin/tazo 3.375gm/50ml 50 ML IV SCH (09:10)
[2017-12-13 09:43] LABS: BASOPHILS % (AUTO) 0 % (0-1); EOSINOPHILS # (AUTO) 0.1 X10'3 (0-0.9); EOSINOPHILS % (AUTO) 1.4 % (0-6); HEMATOCRIT 29.4 % (42.0-52.0); HEMOGLOBIN 9.4 g/dl (14.0-17.9); LYMPHOCYTES # (AUTO) 0.7 X10'3 (1.1-4.8); LYMPHOCYTES % (AUTO) 6.4 % (21-51); MEAN CORPUSCULAR HEMOGLOBIN 28.5 PG (27.0-31.0); MEAN CORPUSCULAR HGB CONC 32.2 % (33.0-36.5); MEAN CORPUSCULAR VOLUME 88.4 FL (78-98); MONOCYTES # (AUTO) 1.9 X10'3 (0-0.9); MONOCYTES % (AUTO) 18.4 % (2-12); NEUTROPHILS # (AUTO) 7.7 X10'3 (1.8-7.7); NEUTROPHILS % (AUTO) 73.8 % (42-75); PLATELET COUNT 331 X10'3 (140-440); RED BLOOD COUNT 3.32 X10'6 (4.70-6.10); RED CELL DISTRIBUTION WIDTH 14.5 % (11.5-14.5); WHITE BLOOD COUNT 10.4 X10'3 (4.5-11.0)
[2017-12-13 09:53] LABS: ANION GAP 9 (8-16); BLOOD UREA NITROGEN 33 MG/DL (7-18); BUN/CREATININE RATIO 31.7 (5.4-32.0); CHLORIDE 107 MMOL/L (99-107); CREATININE 1.04 MG/DL (0.60-1.10); GLUCOSE 156 MG/DL (70-104); POTASSIUM 3.2 MMOL/L (3.5-5.1); SODIUM 143 MMOL/L (135-145); TOTAL CARBON DIOXIDE 27.2 MMOL/L (24-32)
[2017-12-13 09:54] LABS: ALBUMIN 2.6 G/DL (3.4-5.0); CALCIUM 8.6 MG/DL (8.5-10.1); eGFR 69 ML/MIN
[2017-12-13 11:00] VITALS: BP 132/63
[2017-12-14] MEDS ORDERED: VANCOMYCIN LEVEL IV NR (20:30)
== END 2017-12-13 13:35 | DRG 291 ==
LOC: ER 06:55 → OBSVTOIN 09:42 → ED HOLD 09:42 → PCU 3S 11:00 → CMPBEDREQ 12-06 21:35 → PCU 3S 12-12 19:30
PROVIDERS: ADMIT Hospitalist; ATTEND Family Medicine
DX: I11.0 Hypertensive heart disease with heart failure (principal); J96.01 Acute respiratory failure with hypoxia; J18.9 Pneumonia, unspecified organism; J44.0 Chronic obstructive pulmonary disease with (acute) lower respiratory infection; I48.1 Persistent atrial fibrillation; I50.43 Acute on chronic combined systolic (congestive) and diastolic (congestive) heart failure; D63.8 Anemia in other chronic diseases classified elsewhere; E78.00 Pure hypercholesterolemia, unspecified; E78.5 Hyperlipidemia, unspecified; I25.10 Atherosclerotic heart disease of native coronary artery without angina pectoris; Y95 Nosocomial condition; Z66 Do not resuscitate; M19.90 Unspecified osteoarthritis, unspecified site; E87.6 Hypokalemia; B95.4 Other streptococcus as the cause of diseases classified elsewhere; N13.9 Obstructive and reflux uropathy, unspecified; I95.9 Hypotension, unspecified; G30.9 Alzheimer's disease, unspecified; F02.80 Dementia in other diseases classified elsewhere, unspecified severity, without behavioral disturbance, psychotic disturbance, mood disturbance, and anxiety; Z95.1 Presence of aortocoronary bypass graft; Z79.899 Other long term (current) drug therapy; Z79.82 Long term (current) use of aspirin; Z87.891 Personal history of nicotine dependence
CPT/HCPCS: 36415; 36600; 70450; 71045; 80048; 80053; 80202; 81001; 82803; 82948; 83605; 83735; 83880; 84132; 84145; 84484; 85018; 85025; 85610; 85730; 87040; 87070; 87077; 87186; 93005; 93306; 96374; 96375; 97110; 97116; 97162; 97530; 99285; G0378; J1940; J1956; J2543; J3370; J3490; J7030